=== PATIENT | male | born 1985 | race Caucasian/White ===

== ENCOUNTER 2017-03-20 13:42 | Emergency (ER) | payer BC ==
[~2017-03-20] VITALS: Ht 182.9 cm; Wt 81.8 kg
[2017-03-20 13:46] VITALS: BP 122/82
== END 2017-03-20 14:41 | disposition home or self-care (01) ==
LOC: ED 13:42
DX: M25.511 Pain in right shoulder (principal); W01.10XA Fall on same level from slipping, tripping and stumbling with subsequent striking against unspecified object, initial encounter; Y92.008 Other place in unspecified non-institutional (private) residence as the place of occurrence of the external cause; Z88.1 Allergy status to other antibiotic agents
CPT/HCPCS: A4565

== ENCOUNTER 2018-12-14 14:33 | Emergency (ER) | payer BC ==
[2018-12-14 16:18] LABS: EOS % 0.1 % (0.0-4.0); HEMATOCRIT 44.6 % (42.0-52.0); HEMOGLOBIN 15.1 g/dL (13.5-18.0); LYMPH# 1.5 (1.50-4.00); MEAN CELL VOLUME 85 fl (78-100); MEAN CORPUSCULAR HEMOGLOBIN 29 pg (27-31); MEAN CORPUSCULAR HGB CONC 34 g/dL (33-37); MEAN PLATELET VOLUME 10.3 fl (7.4-10.4); MONO # 0.6 (0.20-0.80); NEU # 5.3 (1.40-6.50); PLATELET COUNT 226 K/mm3 (130-400); RED BLOOD COUNT 5.28 M/mm3 (4.20-5.60); RED CELL DISTRIBUTION WIDTH 12.9 % (11.5-14.5); WHITE BLOOD COUNT 7.4 K/mm3 (4.8-10.8)
[2018-12-14 16:29] LABS: ALBUMIN 4.3 g/dL (3.5-5.0); POTASSIUM 3.7 mmol/L (3.5-5.1)
[2018-12-14 16:30] LABS: CALCIUM 9.2 mg/dL (8.3-10.5)
[2018-12-14 16:32] LABS: TOTAL PROTEIN 7.2 g/dL (6.4-8.3)
[2018-12-14 16:33] LABS: TOTAL BILIRUBIN 0.6 mg/dL (0.2-1.2)
[2018-12-14 16:53] LABS: URINE APPEARANCE CLEAR; URINE COLOR YELLOW
[2018-12-14 16:54] LABS: URINE BILIRUBIN NEGATIVE (NEGATIVE); URINE BLOOD NEGATIVE (NEGATIVE); URINE GLUCOSE NEGATIVE (NEGATIVE); URINE KETONE NEGATIVE (NEGATIVE); URINE LEUKOCYTE ESTERASE NEGATIVE (NEGATIVE); URINE NITRATE NEGATIVE (NEGATIVE); URINE PROTEIN(semi-quant) TRACE mg/dL (NEGATIVE); URINE UROBILINOGEN NORMAL (NORMAL)
[2018-12-14 16:55] LABS: URINE WBC 0-1 /hpf (0-3)
[2018-12-14 19:00] VITALS: BP 114/81
== END 2018-12-14 19:00 | disposition home or self-care (01) ==
LOC: ED 14:33
PROVIDERS: Nurse Practitioner Primary Care
DX: T67.5XXA Heat exhaustion, unspecified, initial encounter (principal); Z88.1 Allergy status to other antibiotic agents; X30.XXXA Exposure to excessive natural heat, initial encounter; Y93.H2 Activity, gardening and landscaping; Y92.73 Farm field as the place of occurrence of the external cause
CPT/HCPCS: J1200; J1885; J2405; J7030